=== PATIENT | male | born 1985 | race Caucasian/White ===

== ENCOUNTER 2018-09-11 18:45 | Emergency (ER) | payer OTHER | END 2018-09-11 19:55 | disposition home or self-care (01) | LOC: E/R 18:45 | DX: F41.9 Anxiety disorder, unspecified (principal); T48.1X5A Adverse effect of skeletal muscle relaxants [neuromuscular blocking agents], initial encounter; R07.9 Chest pain, unspecified | CPT/HCPCS: 82962; 93005; 99283-25 ==